=== PATIENT | female | born 1940 | race Caucasian/White ===

== ENCOUNTER 2016-09-14 13:51 | Outpatient (CLI) ==
--- NOTE | 2016-09-14 15:06 | CT ---
EXAM: CT ABDOMEN AND PELVIS HISTORY: Lower back pain, bilateral flank pain TECHNIQUE: CT abdomen and pelvis without intravenous contrast. Images were reconstructed using 3 m m section thickness. Reformations were prepared. COMPARISON: 03/29/2011 FINDINGS: No focal hepatic or splenic lesions identified within limits of this unenhanced exam. Gallbladder h as been removed. Pancreas and adrenal glands reveal no obvious pathology. There is no nephrolithias is or hydronephrosis. No obvious renal cortical masses identified on this limited unenhanced study. There is no perinephric fat stranding or evidence of ureteral calculus. Moderate atherosclerotic disease of the aorta with no aneurysmal caliber. Stomach within normal limits. Unremarkable appendix. There is short segment (4.0 cm) wall thickenin g and caliber narrowing of the mid right colon. Bowel gas pattern is within normal limits. Uterus and urinary bladder are grossly unremarkable. No ascites or inflammatory infiltration of the abdomi nal fat. No abdominal wall hernia. Bones appear diffusely demineralized. Multilevel vertebral body compress ion deformities most of which have been treated by previous kyphoplasty. None appear obviously acute . These are new since the dated 2010 exam however. There is degenerative disc disease and anterior spondylolisthesis of L4 on L5 by approximately 0.54 cm. Multilevel central canal and neural foramin al stenosis, severe at L4/L5. Lung bases are free of infiltrate. No pneumoperitoneum. IMPRESSION: 1. Diffuse demineralization. Multilevel vertebral body compression fractures most which have been treated by previous kyphoplasty although are new since the dated 2010 exam, and none appear obviousl y acute. Degenerative disc and facet disease, severe central canal stenosis at least at L4/L5. 2. Short segment narrowing of the mid ascending colon which may be related to non distension. Prob ably less likely neoplasia could be considered. Assure the patient he is up-to-date on colon cancer screening. 3. Kidneys, ureters and urinary bladder are within normal limits. 4. Moderate atherosclerotic disease.
== END 2016-09-14 13:52 | disposition home or self-care (01) ==
LOC: RAD 13:51
PROVIDERS: ATTEND Family Medicine
DX: R10.30 Lower abdominal pain, unspecified (principal)
CPT/HCPCS: 74176

== ENCOUNTER 2016-09-21 13:21 | Outpatient (CLI) | payer OTHER | END 2016-09-21 13:22 | disposition home or self-care (01) | LOC: LAB 13:21 | PROVIDERS: ATTEND Nurse Practitioner Family | DX: R10.30 Lower abdominal pain, unspecified (principal); R19.4 Change in bowel habit | CPT/HCPCS: 89055 ==

== ENCOUNTER 2016-10-11 14:21 | Outpatient (CLI) ==
--- NOTE | 2016-10-11 15:29 | DI ---
EXAM: Right wrist three views HISTORY: Wrist pain. No history of trauma. FINDINGS: No comparison. Bones appear demineralized. There is moderate osteoarthritis involving th e lateral intercarpal articulations, radiocarpal articulations and at the first carpal-metacarpal maria dolores int. Slight cortical irregularity of one of the anterior carpus on the lateral projection which it i s unlikely to represent a fracture without a history of trauma. Joints are intact. IMPRESSION: Demineralization and osteoarthritis.
== END 2016-10-11 14:22 | disposition home or self-care (01) ==
LOC: RAD 14:21
PROVIDERS: ATTEND Family Medicine
DX: M25.531 Pain in right wrist (principal); G89.29 Other chronic pain

== ENCOUNTER 2016-11-21 12:09 | Outpatient (CLI) | payer OTHER ==
--- NOTE | 2016-11-21 14:35 | MRI ---
EXAM: MRI of the right wrist without contrast COMPARISON: Right wrist radiographs 10/11/2016. HISTORY: Right wrist pain with decreased range of motion. Symptoms for several years without a kno wn injury. TECHNIQUE: Multiplanar noncontrast MR images of the right wrist were acquired using a 1.2 Shruti mag net. FINDINGS: There is markedly heterogeneous signal throughout the bone marrow at the level of the bruce ate with marrow with most extensive signal changes centrally consistent with osteonecrosis. Suspect ed cleft/component of fragmentation through the mid portion of the bone. Marked joint space narrowi ng at the radiocarpal articulation as well as of the midcarpal joint. Moderate degenerative spurrin g at the scaphoid - trapezium and first carpometacarpal joints. Marrow edema throughout the remaind er of the carpals which may be reactive in nature without an acute fracture at those sites. No abno rmal widening of the scapholunate or lunotriquetral intervals. Sprain of the scapholunate ligament without evidence of a full-thickness tear on this non arthrographic study. Marked thinning of the c entral portion of the triangular fibrocartilage disc related to a degenerative type tear with suspec pedro full-thickness component. Moderate size radiocarpal, midcarpal and distal radioulnar joint effu sions with synovial thickening, nonspecific. 1.3 x 0.9 cm multi septated T2 hyperintense focus along the volar aspect of the distal radius radioscaphoid articulation which may represent fluid within a promontory recess versus ganglion/synovial cyst. Ovoid region of hypointense signal measuring 8 x 6 mm in size at that level which may represent focal synovial proliferation or loose body. Dorsal abraham bluxation of the ulna at the distal radioulnar joint. There is extensor carpi ulnaris tendinosis and tenosynovitis. Trace tenosynovitis along the remaind er of the dorsal extensor tendons of the wrist. No full-thickness tendon tear or tendon retraction. Median nerve is unremarkable appearance of the carpal tunnel. IMPRESSION: 1. 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 2. Osteoarthrosis with most severe changes of the radiocarpal and midcarpal joints. 3. Moderate radiocarpal, midcarpal and distal radioulnar joint effusions with synovial thickening, nonspecific. Correlate clinically for signs of an inflammatory arthritis such as rheumatoid arthrit is versus infection. Consider aspiration if clinically warranted. Question fluid within a prominent joint recess versus ganglion/synovial cyst along the volar aspect the radioscaphoid articulation wi th loose body versus focal synovitis at that site. 4. Extensor carpi ulnaris tendinosis and tenosynovitis. Minimal tenosynovitis involving the remain nurys of the dorsal extensor tendons as well. 5. Degenerative type tear of the triangular fibrocartilage disc with a full-thickness component as described. Sprain of the scapholunate ligament without evidence of a full-thickness tear on this no n arthrographic study.
== END 2016-11-21 12:10 | disposition home or self-care (01) ==
LOC: RAD 12:09
PROVIDERS: ATTEND Family Medicine
DX: M25.531 Pain in right wrist (principal); G89.29 Other chronic pain
CPT/HCPCS: 36415; 86430

== ENCOUNTER 2018-02-19 14:20 | Outpatient (CLI) | payer OTHER ==
--- NOTE | 2018-02-20 12:03 | MAMMO ---
EXAM: Bilateral digital screening mammogram (2-D and 3-D) History: Screening Comparison: Bilateral mammogram 08/21/2012 Findings: MLO and CC views of bilateral breasts demonstrate scattered fibroglandular breast parenchy ma. CAD was reviewed by the radiologist. Tomosynthesis was performed. Stable benign bilateral scatt ered and vascular calcifications. There are no dominant masses, no suspicious microcalcifications an d no architectural distortions Impression: Benign stable mammogram. Recommend followup routine screening mammography in 1 year. BIRADS 2
== END 2018-02-19 14:21 | disposition home or self-care (01) ==
LOC: RAD 14:20
PROVIDERS: ATTEND Family Medicine
DX: Z12.31 Encounter for screening mammogram for malignant neoplasm of breast (principal)
CPT/HCPCS: 77067

== ENCOUNTER 2018-03-06 13:46 | Outpatient (CLI) | payer OTHER ==
--- NOTE | 2018-03-06 16:43 | DI ---
EXAM: Two views of the chest. History: Short of breath Comparison: Chest radiograph 08/03/2014 Findings: Heart size is upper limits of normal. No focal consolidation. No appreciable pleural flu id and no pneumothorax. There is central bronchial wall thickening. Atherosclerotic vascular calcif ications. Multiple kyphoplasties within the thoracic spine. 1.4 cm cylindrical radiodensity seen pr ojecting over the soft tissues of the back. Impression: No acute cardiopulmonary process. Central bronchial wall thickening
== END 2018-03-06 13:47 | disposition home or self-care (01) ==
LOC: RAD 13:46
PROVIDERS: ATTEND Family Medicine
DX: R05 Cough (principal); R06.02 Shortness of breath

== ENCOUNTER 2018-03-08 12:38 | Outpatient (CLI) ==
--- NOTE | 2018-03-08 14:37 | CT ---
EXAM: CT of the chest without contrast History: Chest pain. Comparison: Thoracic spine CT 03/08/2018, chest radiograph 03/06/2018 Technique: Multiplanar CT images through the chest were obtained without the administration of IV co ntrast Findings: Heart size is upper limits of normal. Coronary calcifications. No pericardial effusion. No thoracic aortic aneurysm. No pathologically enlarged thoracic lymph nodes. There is mild diffus e bronchial wall thickening and subtle bilateral ground-glass changes. No pleural fluid and no pneum othorax. No suspicious lung masses or lung nodules. No pleural fluid and no pneumothorax. Mild emphy sema Within the visualized upper abdomen, status post cholecystectomy. Osteopenia. There are multiple ky phoplasties within the thoracic spine. Impression: 1. Mild bilateral pneumonitis. 2. Coronary artery disease. 3. Mild emphysema
--- NOTE | 2018-03-08 14:44 | CT ---
EXAM: CT of the thoracic spine without contrast History: Thoracic back pain. Technique: Multiplanar CT images through the thoracic spine were obtained without the administration of IV contrast Findings: Osteopenia. Kyphoplasties seen within the thoracic spine from T8 through T12. There is a moderate compression deformity of T12 with at least 8% loss of height. There is a tract of cement wit hin the left side of T9 extending into the posterior soft tissues where there is a 1.6 cm rectangular metallic object. Mild age indeterminate compression fracture involving superior endplate of T7. Ch ronic-appearing compression deformity involving the inferior endplate of L1. Impression: 1. Multiple thoracic spine kyphoplasties as described above. 2. Age indeterminate compression fracture involving superior endplate of T7.
== END 2018-03-08 12:39 | disposition home or self-care (01) ==
LOC: RAD 12:38
PROVIDERS: ATTEND Family Medicine
DX: M54.6 Pain in thoracic spine (principal); R07.89 Other chest pain

== ENCOUNTER 2018-04-17 14:30 | Outpatient (CLI) | payer OTHER ==
--- NOTE | 2018-04-18 08:29 | DI ---
EXAM: Two views of the chest. History: Cough. Comparison: Chest radiograph 03/06/2018, chest CT 03/08/2018 Findings: Heart size is normal. Emphysema. No focal consolidation. No appreciable pleural fluid a nd no pneumothorax. Coronary calcifications. Atherosclerotic vascular calcifications of the aorta. Kyphoplasties again seen within the spine. Increased compression of the T7 vertebral body Impression: No acute cardiopulmonary process.
== END 2018-04-17 14:31 | disposition home or self-care (01) ==
LOC: RAD 14:30
PROVIDERS: ATTEND Family Medicine
DX: R05 Cough (principal)